=== PATIENT | female | born 1955 | race Caucasian/White ===

== ENCOUNTER → 2017-02-02 | Outpatient (CLI) | payer MEDICARE, BC ==
[~2017-02-02] MED LIST: ALISKIREN PO; AMARYL PO; AMLODIPINE BESY10 MG PO; ATENOLOL; ATENOLOL PO; BENICAR; CELEBREX PO; COZAAR PO; DEMADEX PO; DOC-Q-LACE100 MG PO; FLEXERIL; FLEXERIL PO; GLUCOPHAGE XR500 MG PO; INDOCIN SR75 MG; KCL; KCL PO; LANOXIN; LISINOPRIL; LOW DOSE ASPIRI81 M1 PO; METFORMIN; METOPROLOL TAR25 MG PO; NEXIUM20 MG PO; NORVASC; NORVASC PO; PAROXETINE HCL20 MG PO; PAXIL; PAXIL PO; PHENERGAN PO; PRAVASTATIN SOD20 MG PO; RENVELA800 MG PO; SODIUM BICARBO650 MG PO; VIT B-12 PO; VITAMIN D31000 UNI1 PO; ZAROXYLYN; ZAROXYLYN PO; ZYLOPRIM PO
--- NOTE | ~2017-02-02 | PFT ---
[id number] [facility] [address] [place], [place] [address] [id number] O MR#: [id number] NAME: DYLON BLAS ROOM: SEX: F STUDY DATE/TIME: 02/10/2017 : 1955 AGE: 62 STUDY DESCRIPTION: Attending Physician: Mercy Beth M.D. Referring Physician: Mercy Beth M.D. Primary Care Physician: Mercy Beth M.D. PULMONARY DIAGNOSTIC REPORT EXAM Pulmonary function test FINDINGS Spirometry is suggestive of a moderate restrictive defect. There is a significant response to bronchodilators at 12% yielding an FEV1 of 1.7 L, 64% of predicted. Flow-volume loop is suggestive of a restrictive defect. Lung volumes confirm a restrictive defect with a total lung capacity of 69%. Diffusion capacity is reduced to 38% suggesting an intrinsic restrictive defect such as pulmonary fibrosis. Dictated by... Tod Escobedo M.D. WOL/cf TD: 02/10/2017 18:08 JOB #: [id number] PULMONARY DIAGNOSTIC REPORT Page 1 of 1
== END | disposition home or self-care (01) ==
LOC: CRC 12:44
DX: R06.02 Shortness of breath (principal)
CPT/HCPCS: 94060; 94726; 94729

== ENCOUNTER → 2017-02-23 | Outpatient (CLI) | payer MEDICARE, BC ==
--- NOTE | ~2017-02-23 | CT57 ---
[facility] A Service of [facility] & [facility] RADIOLOGY TEXT RESULTS PATIENT: DYLON BLAS LOCATION: [facility] : [birth year] UNIT #: [id number] AGE: [address]: Jessica Vaz APRN SEX: F ORDER DR: [id number] [facility] [address] [place], [place] [address] [id number] O MR#: [id number] Acc #: [id number] NAME: DYLON BLAS : 1955 SEX: F STUDY DATE/TIME: 02/23/2017 16:09 UNIT: [facility] ROOM: STUDY DESCRIPTION: CT Chest Wo Cont Attending Physician: Jessica Vaz A.P.R.N. Referring Physician: Jessica Vaz A.P.R.N. Ordering Physician: Jessica Vaz A.P.R.N. Primary Care Physician: Mercy Beth M.D. MEDICAL IMAGING REPORT This report is preliminary unless electronic signature is present EXAM CT scan of the chest without contrast INDICATIONS shortness of breath for [address] P[address]s. TECHNIQUE CT of the chest was performed without contrast. Selected HRCT imaging was obtained in the supine and prone positioning. Comparison with CT of the abdomen and pelvis from 06/10/[address] exam was performed with one or more of the following radiation dose reduction techniques: automatic exposure control, adjustment of mA and/or kV according to patient size, and iterative reconstruction. FINDINGS Since the prior study there has been development of curvilinear parenchymal density in the subpleural locations within both lower lobes which is persistent on prone imaging most consistent with some mild fibrosis. There is no evidence of honeycombing, diffuse infiltrative lung disease or bronchiectasis. 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 Surgical clips in the left axilla. There is no suspicious lymphadenopathy. Coronary artery calcifications. There is some nonspecific mild thickening of the distal esophagus. Limited imaging of the upper abdomen demonstrates a cyst in the liver and a cholecystectomy and multiple cysts in the upper pole region of the left kidney. IMPRESSION There is bilateral curvilinear subpleural parenchymal fibrotic change in the lower lobes. Overall it is mild. There is no honeycombing, diffuse STS. [facility] A Service of [facility] & [facility] RADIOLOGY TEXT RESULTS PATIENT: DYLON BLAS LOCATION: [facility] : 51 UNIT #: [id number] AGE: [address]: Jessica Vaz BEVERAGE SPECIALIST SEX: F ORDER DR: infiltrative lung disease or bronchiectasis. Dictated by... Angel Baumann M.D. THIS IS AN ELECTRONICALLY VERIFIED REPORT Angel Baumann M.D. at 02/25/2017 9:11 AM Richy TD: 02/24/2017 08:37 JOB #: [id number] MEDICAL IMAGING REPORT Page 1 of 1 COPY
== END | disposition home or self-care (01) ==
LOC: CCAT 15:08
DX: J84.10 Pulmonary fibrosis, unspecified (principal); R06.00 Dyspnea, unspecified; R94.2 Abnormal results of pulmonary function studies
CPT/HCPCS: 71250; 82164; 83880; 85652; 86225; 86331; 86430; 86606; 86609; 86744

== ENCOUNTER → 2017-05-24 | Outpatient (CLI) | payer MEDICARE, BC ==
--- NOTE | ~2017-05-24 | CR229 ---
[facility] A Service of [facility] RADIOLOGY TEXT RESULTS PATIENT: DYLON BLAS LOCATION: [facility] : 51 UNIT #: [id number] AGE: [address]: Mercy Beth MD SEX: F ORDER DR: [id number] [facility] [address] [place], [place] [address] [id number] O MR#: [id number] Acc #: [id number] NAME: DYLON BLAS : 1955 SEX: F STUDY DATE/TIME: 05/24/2017 14:26 UNIT: [facility] ROOM: STUDY DESCRIPTION: CR Shoulder Min 2 View Lt Attending Physician: Mercy Beth M.D. Referring Physician: Mercy Beth M.D. Ordering Physician: Mercy Beth M.D. Primary Care Physician: Mercy Beth M.D. MEDICAL IMAGING REPORT This report is preliminary unless electronic signature is present EXAM Three views left shoulder. DATE 05/24/2017 HISTORY Tendinitis of left shoulder per referring physician history. Patient states left shoulder pain for 2 months growing progressively worse, no known injury. COMPARISON None. FINDINGS No fracture. No dislocation. Glenohumeral joint space appears well preserved. No acromioclavicular or coracoclavicular separation. No appreciable AC joint arthropathy. Imaged left lung appears clear. Imaged left ribs appear intact. Surgical clips are seen in the left axilla. IMPRESSION Normal 3 views of the left shoulder. Dictated by... Amena Jarrett M.D. THIS IS AN ELECTRONICALLY VERIFIED REPORT Amena Jarrett M.D. at 05/25/2017 8:56 AM [facility]/nghia TD: 05/25/2017 03:38 JOB #: [id number] [facility] A Service of [facility] RADIOLOGY TEXT RESULTS PATIENT: DYLON BLAS LOCATION: [facility] #: [id number] : 51 UNIT #: [id number] AGE: [address]: Mercy Beth MD SEX: F ORDER DR: MEDICAL IMAGING REPORT Page 1 of 1 COPY
== END | disposition home or self-care (01) ==
LOC: CRAD 12:47
DX: M75.82 Other shoulder lesions, left shoulder (principal)
CPT/HCPCS: 70544; 70551; 71250; 73030; 82565